=== PATIENT | female | born 1985 | race African-American/Black ===

== ENCOUNTER 2023-11-17 06:40 | Emergency (ER) | payer MEDICAID ==
[~2023-11-17] VITALS: Ht 167.6 cm; Wt 66.0 kg
[2023-11-17 06:44] VITALS: BP 108/72; PULSE 76; RESP 18; TEMP 97.8; O2SAT 100
[2023-11-17] MEDS ORDERED: DICYCLOMINE 10 MG/5 ML ORAL SYR PO STA (08:20)
[2023-11-17] MEDS: HALOPERIDOL LACTATE 5MG/ML VIAL IM ONE (08:30)
[2023-11-17 08:33] LABS: BASOPHILS % 0.1 % (0.0-2.0); DIFFERENTIAL COMMENT 0; HEMATOCRIT. 39.6 % (36.0-48.0); HEMOGLOBIN. 12.3 g/dL (12.0-16.0); LYMPHOCYTES % 8.4 % (20.0-50.0); MEAN CORPUSCULAR HEMOGLOBIN 24.7 pg (28.0-32.0); MEAN CORPUSCULAR HGB CONC 31.1 g/dL (31.0-37.0); MEAN CORPUSCULAR VOLUME 79.3 fL (81.0-99.0); MEAN PLATELET VOLUME 7.9 fl (7.4-10.4); MONOCYTES % 2.6 % (2.0-8.0); NEUTROPHILS % 88.9 % (40.0-76.0); PLATELET 339 x1000/uL (130-400); RED CELL DISTRIBUTION WIDTH 21.1 % (11.6-14.6); WHITE BLOOD COUNT 7.9 x1000/uL (4.5-11.0)
[2023-11-17 08:43] LABS: CHLORIDE 100 mEq/L (98-107); POTASSIUM 3.6 mEq/L (3.5-5.1); SODIUM 136 mEq/L (136-145)
[2023-11-17 08:44] LABS: CARBON DIOXIDE 28 mEq/L (21-32)
[2023-11-17 08:45] LABS: CALCIUM 10.3 mg/dL (8.7-10.4)
[2023-11-17 08:47] LABS: HCG SCREEN NEGATIVE
[2023-11-17 08:49] LABS: CREATININE 1.3 mg/dL (0.6-1.0); GLUCOSE 142 mg/dL (70-105)
[2023-11-17 08:50] LABS: UREA NITROGEN BLOOD 10 mg/dL (9-23)
[2023-11-17 09:03] LABS: ETHANOL BLOOD < 10 mg/dL (<10)
[2023-11-17 09:30] LABS: CLARITY URINE CLEAR (CLEAR); COLOR URINE YELLOW (YELLOW); GLUCOSE URINE NEGATIVE (NEGATIVE); KETONES URINE TRACE (NEGATIVE); LEUKOCYTE ESTERASE URINE NEGATIVE (NEGATIVE); NITRITE URINE NEGATIVE (NEGATIVE); OCCULT BLOOD URINE NEGATIVE (NEGATIVE); PH URINE >=9.0 (4.5-8.0); PROTEIN URINE 2+ (NEGATIVE); SPECIFIC GRAVITY URINE 1.035 (1.005-1.030)
[2023-11-17] MEDS: MAGNESIUM/ALUMINUM HYDROXIDE/SIMETHICONE 30ML UDC PO STA (09:37)
[2023-11-17] MEDS: SODIUM CHLORIDE 0.9% 1,000 ML IV ONE (09:37)
[2023-11-17] MEDS: DICYCLOMINE HCL 10MG CAPSULE PO STA (09:37)
[2023-11-17 09:47] LABS: BACTERIA URINE 2+; SQUAMOUS EPITHELIAL CELL URINE 2+ /lpf (RARE/1+); WBC URINE 0-2 /hpf (0-2); YEAST URINE NONE SEEN
[2023-11-17] MEDS ORDERED: FAMO-135 MT (10:50)
[2023-11-17 11:53] LABS: ALANINE AMINOTRANSFERASE 14 IU/L (10-49); ALBUMIN 5.1 g/dL (3.2-4.8); ASPARTATE AMINOTRANSFERASE 24 IU/L (<34); BILIRUBIN DIRECT 0.1 mg/dL (<=3.0); BILIRUBIN TOTAL 0.6 mg/dL (0.1-1.0); PROTEIN TOTAL 8.4 g/dL (6.0-8.3)
== END 2023-11-17 11:30 | disposition home or self-care (01) ==
LOC: ER 06:40
DX: F12.90 Cannabis use, unspecified, uncomplicated (principal)
CPT/HCPCS: 80076; 80048; 81003; 81025; 80320; 84703; 83690; 85025; 36415; 96360; 96372; 99283; J1630; J7030; Z7610 ×2; 96361; G0480